=== PATIENT | male | born 2000 | race Caucasian/White ===

== ENCOUNTER 2021-07-02 20:51 | Emergency (ER) | payer OTHER ==
--- NOTE | 2021-07-02 21:33 | EDM.PDOC ---
ED HPI GENERAL MEDICAL PROBLEM - General Chief Complaint: Respiratory Problem Stated Complaint: COUGH/FEVER/SOB Time Seen by Provider: 07/02/21 21:12 Source of Information: Reports: Patient, RN Notes Reviewed History Limitations: Reports: No Limitations - History of Present Illness INITIAL COMMENTS - FREE TEXT/NARRATIVE: Patient is a 20-year-old male presenting to the emergency department with complaints of a 3-day history of cough, shortness of breath, fever, chills, nasal congestion. He is concerned that he may have COVID-19. He denies any known Covid exposures. Has not had his Covid vaccination. 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 T-max at home today was 103. He did take Tylenol this morning but has had nothing since. Te mperature in triage was found to be 100.3. He was mildly tachycardic at 109. Vital signs were otherwise normal. Denies any chronic medical conditions. Treatments TIP STRETCHER: Reports: Other (see below) Other Treatments TIP STRETCHER: tylenol Throat Pain Score (Numeric/FACES): 5 Headache Pain Score (Numeric/FACES): 3 - Related Data Allergies Allergy/AdvReac Type Severity Reaction Status Date / Time No Known Allergies Allergy Verified 07/02/21 21:21 Home Meds: Home Meds FLUoxetine [PROzac] 10 mg PO DAILY 07/02/21 [History] Past Medical History Psychiatric History: Reports: Anxiety, Depression Social & Family History - Tobacco Use Tobacco Use Status *Q: Never Tobacco User - Caffeine Use Caffeine Use: Reports: Coffee - Recreational Drug Use Recreational Drug Use: No ED ROS GENERAL - Review of Systems Review Of Systems: See Below Constitutional: Reports: Fever, Chills, Fatigue HEENT: Reports: Rhinitis Respiratory: Reports: Shortness of Breath, Pleuritic Chest Pain, Cough. Denies: Wheezing Cardiovascular: Reports: No Symptoms Endocrine: Reports: No Symptoms GI/Abdominal: Reports: No Symptoms : Reports: No Symptoms Musculoskeletal: Reports: Other (body aches) Skin: Reports: No Symptoms Neurological: Reports: No Symptoms Psychiatric: Reports: No Symptoms Hematologic/Lymphatic: Reports: No Symptoms Immunologic: Reports: No Symptoms ED EXAM, GENERAL - Physical Exam Exam: See Below Exam Limited By: No Limitations General Appearance: Alert, WD/WN, No Apparent Distress Respiratory/Chest: No Respiratory Distress, Lungs Clear, Normal Breath Sounds, No Accessory Muscle Use, Chest Non-Tender Cardiovascular: Normal Peripheral Pulses, Regular Rate, Rhythm, No Edema, No Gallop, No JVD, No Murmur, No Rub GI/Abdominal: Normal Bowel Sounds, Soft, Non-Tender, No Organomegaly, No Distention, No Abnormal Bruit, No Mass Neurological: Alert, Oriented, CN II-XII Intact, Normal Cognition, Normal Gait, Normal Reflexes, No Motor/Sensory Deficits Psychiatric: Normal Affect Skin Exam: Warm, Dry, Intact, No Rash, Increased Warmth, Other (flushed face) Course - Vital Signs Last Recorded V/S: Last Vital Signs Temp 100.3 F 07/02/21 21:12 Pulse 109 H 07/02/21 21:12 Resp 20 07/02/21 21:12 BP 133/83 07/02/21 21:12 Pulse Ox 99 07/02/21 21:12 - Orders/Labs/Meds Labs: Laboratory Tests 07/02/21 Range/Units 21:25 SARS-CoV-2 RNA (JACKIE) Positive H (NEGATIVE) - Re-Assessments/Exams Free Text/Narrative Re-Assessment/Exam: 07/02/21 22:51 Patient's Covid testing did come back positive. Chest x-ray shows no evidence of pneumonia at this time. Discussed symptomatic treatment as well as omayra aguirre. I will provide him a note off for work for the next 10 days. Discharge instructions as documented. Departure - Departure Time of Disposition: 22:51 Disposition: Home, Self-Care 01 Condition: Good Clinical Impression: COVID-19 - Discharge Information *PRESCRIPTION DRUG MONITORING PROGRAM REVIEWED*: No *COPY OF PRESCRIPTION DRUG MONITORING REPORT IN PATIENT HANH: No Instructions: COVID-19 Frequently Asked Questions, COVID-19 Referrals: PCP,None [Primary Care Provider] - Forms: ED Department Discharge, ED Return to Work/School Form Additional Instructions: Kade Rivera were seen in the emergency department today for cough, congestion, shortness of breath, and fever. Chest x-ray was done and found to be normal. Your Covid test was unfortunately positive. Recommend that you go home and isolate. Use Tylenol and ibuprofen as needed for discomfort. Ensure you are taking an adequate amount of fluid. Department of Health will be in contact with you within the next few days. You must quarantine for 10 days from the onset of symptoms and until fevers have resolved. Any close contacts of yours who have not been vaccinated would also be required to quarantine. If you should develop any new or worsening symptoms of concern, please not hesitate to return to the emergency department for reevaluation. Sepsis Event Note (ED) - Evaluation Sepsis Screening Result: No Definite Risk
--- NOTE | 2021-07-03 11:09 | CR ---
Chest: Portable view of the chest was obtained. Comparison: No prior chest imaging is available. Heart size and mediastinum are normal. Lungs are clear with no acute parenchymal change. No acute osseous abnormality is appreciated. Impression: 1. Nothing acute is seen on portable chest x-ray. Diagnostic code #1
== END 2021-07-02 23:05 | disposition home or self-care (01) ==
LOC: JD.ED 20:51
DX: U07.1 COVID-19 (principal)
CPT/HCPCS: 71045; 71045-26; 99282; 99285-25; U0002